=== PATIENT | male | born 1940 | race Caucasian/White ===

== ENCOUNTER 2019-10-08 03:08 | Inpatient (IN) | payer MEDICARE, OTHER ==
[~2019-10-08] VITALS: Ht 167.6 cm; Wt 53.0 kg
[~2019-10-08 03:08] MED LIST: ETOMIDATE 40 MG/20 ML ONE; PROPOFOL 10 MG/ML, 100ML IV ONE; ROCURONIUM 10 MG/ML,10ML ONE
[2019-10-08] MEDS ORDERED: CEFTRIAXONE PMX 1GM/50ML 50 ML IVPB ONE (04:00)
[2019-10-08] MEDS ORDERED: AZITHROMYCIN 500 MG in SODIUM CHLORIDE 0.9% 250 ML IVPB ONE (04:00)
[2019-10-08] MEDS ORDERED: PROPOFOL 100 ML IV PRN ×3 (04:00→07:44)
[2019-10-08] MEDS ORDERED: SODIUM CHLORIDE 0.9% 1,000ML IVBOLUS ONE ×2 (04:00→10:00)
[2019-10-08] MEDS ORDERED: PLEASE ENTER ALLERGIES MC SCH (04:00)
--- NOTE | 2019-10-08 04:05 | NUR ---
Late entry. Pt presents to ed c/o sobxmultiple days. States hx of copd, but no o2 at home. Pt appears in severe distress and severe wob. Utilizing accessory muscles and tracheal pulling. Pt intubated w/ 8.0 et 25.0@the lip. Equal breath sounds in all quadrants and etco2 approximately 32. An og tube placed and both validated via xr and erp. Pt initiated on propofol and and urinary catheter placed. Pt in restraints for safety at this time. Pt poor historian and minimal medical history obtained. States "allergic to all steroids and all antibiotics, excluding penicillin."
--- NOTE | 2019-10-08 04:21 | NUR ---
Per md, to give iv steroids and abx, despite stated allergies.
[2019-10-08] MEDS ORDERED: methylPREDNISolone SOD SUCC 125 MG/2 ML ONE (04:24)
[2019-10-08] MEDS ORDERED: CEFTRIAXONE PMX 1GM/50ML 50 ML ONE (04:25)
[2019-10-08 04:29] LABS: MEAN CORPUSCULAR HEMOGLOBIN 30.1 pg (27.5-34.5); MEAN CORPUSCULAR HGB CONC 32.6 g/dL (33.2-36.2); MEAN CORPUSCULAR VOLUME 92.2 fL (81-97); MEAN PLATELET VOLUME 9.1 fL (7.4-10.4); PLATELET COUNT 516 x10^3/uL (130-400); RED BLOOD COUNT 4.81 x10^6/uL (4.38-5.82); RED CELL DISTRIBUTION WIDTH 14.8 % (9.4-14.8)
[2019-10-08] MEDS ORDERED: ACETAMINOPHEN 650 MG SUPP PR ONE (04:30)
[2019-10-08] MEDS ORDERED: methylPREDNISolone SOD SUCC 125 MG/2 ML IV ONE (04:30)
[2019-10-08 04:32] LABS: ALANINE AMINOTRANSFERASE 62 U/L (12-78); ALBUMIN 2.5 g/dL (3.4-5.0); ANION GAP 10 mmol/L (5-15); CALCIUM 9.1 mg/dL (8.5-10.1); CHLORIDE 103 mmol/L (98-107); CREATININE 0.69 mg/dL (0.7-1.3)
[2019-10-08] MEDS ORDERED: ACETAMINOPHEN 325 MG SUPP ONE (04:32)
[2019-10-08 04:36] LABS: ALKALINE PHOSPHATASE 99 U/L (45-117); BILIRUBIN,TOTAL 0.6 mg/dL (0.2-1.0); TOTAL PROTEIN 7.2 g/dL (6.4-8.2)
[2019-10-08 04:44] LABS: TROPONIN I 0.219 ng/mL (0.000-0.045)
--- NOTE | 2019-10-08 04:45 | NUR ---
Pt not tolerating propofol well and bp going down. Md aware and propofol stopped. Versed initiated for sedation and potential for levophed and central line.
[2019-10-08 04:58] LABS: MD YES
[2019-10-08] MEDS ORDERED: DEXTROSE 4 GM TAB.CHEW PO PRN (05:00)
[2019-10-08] MEDS ORDERED: BISACODYL 10 MG SUPP PR PRN (05:00)
[2019-10-08] MEDS ORDERED: DEXTROSE 50%, 50ML SYRINGE IVPush PRN (05:00)
[2019-10-08] MEDS ORDERED: PHARMACY MAY ADJ FOR RENAL FX MC SCH (05:00)
[2019-10-08] MEDS ORDERED: LIDOCAINE-MPF 1%, 2ML ENDO PRN (05:00)
[2019-10-08] MEDS ORDERED: SENNA 176 MG/5 ML ORAL SOL NG PRN (05:00)
[2019-10-08] MEDS ORDERED: LACTULOSE 20 GM/30 ML UDC NG PRN (05:00)
[2019-10-08] MEDS ORDERED: GLUCAGON 1 MG IM PRN (05:00)
[2019-10-08] MEDS ORDERED: SENNA/DOCUSATE TABLET NG PRN (05:00)
[2019-10-08 05:39] LABS: BANDS%(MANUAL) 4 % (0-7); LYMPHS% (MANUAL) 8 % (22-44); MONOS% (MANUAL) 3 % (2-9); NRBC % (MANUAL) 1 % (0-1); SEGS% (MANUAL) 85 % (42-75)
[2019-10-08 05:40] LABS: <PLATELET ESTIMATE> INCREASED; <PLT MORPHOLOGY> NORMAL PLT MORPH; <RBC MORPHOLOGY> NORMAL
--- NOTE | 2019-10-08 05:52 | NUR ---
at bedside to reassess pt.
[2019-10-08] MEDS ORDERED: MIDAZOLAM 1 MG/ML, 5ML IVPush ONE (06:00)
[2019-10-08] MEDS: MIDAZOLAM HCL 25 MG in SODIUM CHLORIDE 0.9% 245 ML IV PRN ×4 (06:04→19:30)
--- NOTE | 2019-10-08 06:23 | NUR ---
Levophed initiated through peripheral line. Central line being placed at this time.
[2019-10-08] MEDS: NOREPINEPHRINE 4 MG in SODIUM CHLORIDE 0.9% 246 ML IV PRN ×4 (06:27→14:13)
--- NOTE | 2019-10-08 06:52 | NUR ---
RECEIVED BEDSIDE REPORT FROM OLI MCDONALD. PT RESTING ON [facility]. [place]. CALLED RADIOLOGY IN REGARDS TO THE STAT XRAY TO CHECK CENTRAL LINE PLACEMENT.
[2019-10-08] MEDS: INSULIN LISPRO 100 UNITS/ML, PEN SQ-INSULIN SCH ×4 (07:00→21:15)
[2019-10-08] MEDS: ALBUTEROL/IPRATROPIUM 2.5MG/0.5MG, 3 ML NPPB SCH ×5 (07:00→22:25)
--- NOTE | 2019-10-08 07:05 | NUR ---
OK TO USE CENTRAL LINE PER EDMD JEN.
[2019-10-08] MEDS ORDERED: VASOPRESSIN 100 UNIT in SODIUM CHLORIDE 0.9% 495 ML IV PRN (07:30)
[2019-10-08] MEDS ORDERED: FAMOTIDINE 20 MG/2 ML IV SCH (08:00)
[2019-10-08] MEDS ORDERED: POTASSIUM CHLORIDE 20 MEQ PACKET PO SCH (08:00)
[2019-10-08] MEDS ORDERED: POTASSIUM CHLORIDE 40 MEQ in SODIUM CHLORIDE 0.9% 1,000 ML IV SCH (08:00)
--- NOTE | 2019-10-08 08:03 | NUR ---
rebaldomerot to pablo Marrero. all questions answered.
[2019-10-08 08:06] LABS: RAPID INFLUENZA A Negative (Negative); RAPID INFLUENZA B Negative (Negative)
--- NOTE | 2019-10-08 08:09 | NUR ---
late entry FROM 0739 RECEIVED VASO FROM PHARMACY. PER DR. CHANG, START AT 0.04 UINTS/MIN. MED BEING ADMINISTERED THROUGH CENTRAL LINE. NADN. PT TOLERATING WITH NO COMPLICATIONS.
--- NOTE | 2019-10-08 08:46 | NUR ---
pt transported to icu bed 4. PT LEFT WITH ALL PERSONAL BELONGINGS, INCLUDING GLASSES AND WALLET.
[2019-10-08] MEDS: SODIUM CHLORIDE FLUSH 10ML SYR IVF SCH ×2 (09:00→21:01)
[2019-10-08] MEDS ORDERED: ASPIRIN 81 MG TABLET CHEW PO ONE (09:30)
[2019-10-08] MEDS: ENOXAPARIN 40 MG/0.4 ML SQ SCH (09:45)
[2019-10-08] MEDS ORDERED: PIPERACILLIN/TAZO/PMX 3.375GM 50 ML IV SCH (10:00)
[2019-10-08] MEDS ORDERED: SODIUM CHLORIDE 0.9% 1,000 ML IV SCH (10:30)
[2019-10-08 12:52] LABS: ANION GAP 9 mmol/L (5-15); CALCIUM 7.4 mg/dL (8.5-10.1); CHLORIDE 113 mmol/L (98-107); CREATININE 0.84 mg/dL (0.7-1.3)
[2019-10-08] MEDS: methylPREDNISolone SOD SUCC 125 MG/2 ML IVPush SCH ×2 (12:53→21:00)
[2019-10-08 12:57] LABS: CHOL/HDL RATIO 4.2; LDL/HDL RATIO 2.5 (0.5-3.0)
[2019-10-08] MEDS: NOREPINEPHRINE 8 MG in SODIUM CHLORIDE 0.9% 242 ML IV PRN ×2 (16:55→21:33)
[2019-10-08] MEDS: SODIUM CHLORIDE 0.9% 1,000 ML IV SCH ×2 (17:15→23:23)
[2019-10-08] MEDS: FENTANYL PF 100 MCG/2ML IVPush PRN (17:20)
[2019-10-08] MEDS: PIPERACILLIN/TAZO/PMX 3.375GM 50 ML IV SCH ×2 (17:49→23:23)
[2019-10-08 18:32] LABS: TROPONIN I 0.882 ng/mL (0.000-0.045)
[2019-10-08] MEDS: ATORVASTATIN 40 MG TABLET PO SCH (20:59)
[2019-10-09] MEDS: ALBUTEROL/IPRATROPIUM 2.5MG/0.5MG, 3 ML NPPB SCH ×6 (02:16→23:00)
[2019-10-09] MEDS: MIDAZOLAM HCL 25 MG in SODIUM CHLORIDE 0.9% 245 ML IV PRN ×4 (02:55→22:59)
[2019-10-09] MEDS: NOREPINEPHRINE 8 MG in SODIUM CHLORIDE 0.9% 242 ML IV PRN (02:55)
[2019-10-09 05:19] LABS: ANION GAP 9 mmol/L (5-15); CALCIUM 7.4 mg/dL (8.5-10.1); CHLORIDE 119 mmol/L (98-107); CREATININE 0.84 mg/dL (0.7-1.3)
[2019-10-09 05:21] LABS: MEAN CORPUSCULAR HEMOGLOBIN 30.2 pg (27.5-34.5); MEAN CORPUSCULAR HGB CONC 31.8 g/dL (33.2-36.2); MEAN PLATELET VOLUME 8.9 fL (7.4-10.4); PLATELET COUNT 527 x10^3/uL (130-400); RED BLOOD COUNT 3.78 x10^6/uL (4.38-5.82); RED CELL DISTRIBUTION WIDTH 15.1 % (9.4-14.8)
[2019-10-09] MEDS: PIPERACILLIN/TAZO/PMX 3.375GM 50 ML IV SCH ×4 (05:32→22:59)
[2019-10-09] MEDS: methylPREDNISolone SOD SUCC 125 MG/2 ML IVPush SCH ×3 (05:32→21:18)
[2019-10-09] MEDS: INSULIN LISPRO 100 UNITS/ML, PEN SQ-INSULIN SCH ×4 (05:34→21:00)
[2019-10-09 06:00] LABS: MD YES
[2019-10-09 06:02] LABS: BAND#(MANUAL) 2.95 x10^3/uL; BANDS%(MANUAL) 8 % (0-7); LYMPH#(MANUAL) 3.32 x10^3/uL (1-3.4); LYMPHS% (MANUAL) 9 % (22-44); METAMYELOCYTES# (MANUAL) 1.11 x10^3/uL (0-0); METAMYELOCYTES% (MANUAL) 3 % (0-1); MONOS#(MANUAL) 0.74 x10^3/uL (0.3-2.7); MONOS% (MANUAL) 2 % (2-9); NRBC % (MANUAL) 1 % (0-1); SEG#(MANUAL) 28.78 x10^3/uL (1.8-6.8); SEGS% (MANUAL) 78 % (42-75)
[2019-10-09 06:03] LABS: <PLATELET ESTIMATE> INCREASED; ANISOCYTOSIS 1+; POLYCHROMASIA 1+
[2019-10-09 06:04] LABS: LARGE PLATELETS 1+
[2019-10-09 06:05] LABS: TOXIC GRAN 1+
[2019-10-09 06:06] LABS: ECHINOCYTES 1+
[2019-10-09] MEDS: SODIUM CHLORIDE 0.9% 1,000 ML IV SCH ×2 (07:46→16:52)
[2019-10-09] MEDS: NOREPINEPHRINE 16 MG in SODIUM CHLORIDE 0.9% 234 ML IV PRN (07:47)
[2019-10-09] MEDS: THIAMINE 200 MG in SODIUM CHLORIDE 0.9% 50 ML IV SCH (09:34)
[2019-10-09] MEDS: ENOXAPARIN 40 MG/0.4 ML SQ SCH (10:08)
[2019-10-09] MEDS: FAMOTIDINE 20 MG/2 ML IV SCH (10:08)
[2019-10-09] MEDS ORDERED: SODIUM CHLORIDE 0.9% 1,000 ML IV SCH (10:30)
--- NOTE | 2019-10-09 10:50 | NUR ---
TF goal when ordered: w/ propofol: PROMOTE @ 50 ml/hr off propofol: 60ml/hr Will need slow start and advance w/ risk for refeeding
[2019-10-09 10:56] LABS: MICROSCOPIC INDICATED
[2019-10-09 11:00] LABS: CULTURE INDICATED? NO
[2019-10-09] MEDS: SODIUM CHLORIDE FLUSH 10ML SYR IVF SCH ×2 (13:02→21:17)
[2019-10-09] MEDS: ATORVASTATIN 40 MG TABLET PO SCH (21:18)
[2019-10-10] MEDS: ALBUTEROL/IPRATROPIUM 2.5MG/0.5MG, 3 ML NPPB SCH ×6 (03:00→23:32)
[2019-10-10] MEDS: PIPERACILLIN/TAZO/PMX 3.375GM 50 ML IV SCH ×4 (04:53→23:45)
[2019-10-10] MEDS: INSULIN LISPRO 100 UNITS/ML, PEN SQ-INSULIN SCH ×4 (04:53→21:00)
[2019-10-10] MEDS: methylPREDNISolone SOD SUCC 125 MG/2 ML IVPush SCH ×3 (04:55→21:52)
[2019-10-10 05:07] LABS: ANION GAP 8 mmol/L (5-15); CALCIUM 7.5 mg/dL (8.5-10.1); CHLORIDE 120 mmol/L (98-107)
[2019-10-10 05:09] LABS: MEAN CORPUSCULAR HEMOGLOBIN 30.4 pg (27.5-34.5); MEAN CORPUSCULAR HGB CONC 32.2 g/dL (33.2-36.2); MEAN CORPUSCULAR VOLUME 94.3 fL (81-97); MEAN PLATELET VOLUME 8.5 fL (7.4-10.4); PLATELET COUNT 460 x10^3/uL (130-400); RED BLOOD COUNT 3.52 x10^6/uL (4.38-5.82); RED CELL DISTRIBUTION WIDTH 15.3 % (9.4-14.8)
[2019-10-10] MEDS: MIDAZOLAM HCL 25 MG in SODIUM CHLORIDE 0.9% 245 ML IV PRN ×3 (06:03→21:57)
[2019-10-10 06:32] LABS: MD YES
[2019-10-10 06:33] LABS: ANISOCYTOSIS 1+; BAND#(MANUAL) 2.86 x10^3/uL; BANDS%(MANUAL) 8 % (0-7); ECHINOCYTES 1+; LYMPH#(MANUAL) 0.72 x10^3/uL (1-3.4); LYMPHS% (MANUAL) 2 % (22-44); MONOS#(MANUAL) 0.36 x10^3/uL (0.3-2.7); MONOS% (MANUAL) 1 % (2-9); NRBC % (MANUAL) 1 % (0-1); SEG#(MANUAL) 31.86 x10^3/uL (1.8-6.8); SEGS% (MANUAL) 89 % (42-75)
[2019-10-10 06:34] LABS: <PLATELET ESTIMATE> INCREASED; <PLT MORPHOLOGY> NORMAL PLT MORPH; OVALOCYTES 1+; POLYCHROMASIA 1+; TOXIC GRAN 1+
[2019-10-10] MEDS ORDERED: SODIUM PHOSPHATE 30 MMOL in SODIUM CHLORIDE 0.9% 500 ML IV ONE (07:00)
[2019-10-10] MEDS ORDERED: POTASSIUM CHLORIDE 10% 20 MEQ/15 ML UDC PO ONE (07:00)
[2019-10-10] MEDS: SODIUM CHLORIDE 0.9% 1,000 ML IV SCH (07:18)
[2019-10-10] MEDS ORDERED: POTASSIUM CHLORIDE 20 MEQ PACKET ONE (07:51)
[2019-10-10] MEDS: DOBUTAMINE/D5W PMX 250 ML IV PRN (09:29)
[2019-10-10] MEDS: ENOXAPARIN 40 MG/0.4 ML SQ SCH (09:29)
[2019-10-10] MEDS: FAMOTIDINE 20 MG/2 ML IV SCH (09:29)
[2019-10-10] MEDS: SODIUM CHLORIDE FLUSH 10ML SYR IVF SCH ×2 (09:35→21:52)
[2019-10-10] MEDS: NOREPINEPHRINE 16 MG in SODIUM CHLORIDE 0.9% 234 ML IV PRN (09:35)
[2019-10-10] MEDS: THIAMINE 200 MG in SODIUM CHLORIDE 0.9% 50 ML IV SCH (11:59)
[2019-10-10] MEDS: FENTANYL PF 100 MCG/2ML IVPush PRN (14:41)
[2019-10-10] MEDS ORDERED: SODIUM CHLORIDE 0.9% 1,000 ML IV SCH (18:00)
[2019-10-10] MEDS: ATORVASTATIN 40 MG TABLET PO SCH (21:52)
[2019-10-11] MEDS: DOBUTAMINE/D5W PMX 250 ML IV PRN ×2 (01:00→18:37)
[2019-10-11] MEDS: MIDAZOLAM HCL 25 MG in SODIUM CHLORIDE 0.9% 245 ML IV PRN ×4 (02:11→23:43)
[2019-10-11] MEDS: ALBUTEROL/IPRATROPIUM 2.5MG/0.5MG, 3 ML NPPB SCH ×6 (03:00→22:30)
[2019-10-11 04:54] LABS: MEAN CORPUSCULAR HEMOGLOBIN 29.9 pg (27.5-34.5); MEAN CORPUSCULAR HGB CONC 31.9 g/dL (33.2-36.2); MEAN CORPUSCULAR VOLUME 93.6 fL (81-97); MEAN PLATELET VOLUME 8.3 fL (7.4-10.4); PLATELET COUNT 407 x10^3/uL (130-400); RED BLOOD COUNT 3.36 x10^6/uL (4.38-5.82); RED CELL DISTRIBUTION WIDTH 15.4 % (9.4-14.8)
[2019-10-11 05:00] LABS: CHLORIDE 120 mmol/L (98-107)
[2019-10-11 05:05] LABS: ANION GAP 6 mmol/L (5-15); CALCIUM 7.5 mg/dL (8.5-10.1); CREATININE 0.57 mg/dL (0.7-1.3); TRIGLYCERIDES 148 mg/dL (50-200)
[2019-10-11] MEDS: PIPERACILLIN/TAZO/PMX 3.375GM 50 ML IV SCH (05:07)
[2019-10-11] MEDS: methylPREDNISolone SOD SUCC 125 MG/2 ML IVPush SCH ×3 (05:07→21:18)
[2019-10-11 05:16] LABS: BASOPHILS # (AUTO) 0.01 x10^3/uL (0-0.1); BASOPHILS % (AUTO) 0 % (0-1); EOSINOPHILS # (AUTO) 0.33 x10^3/uL (0-0.4); EOSINOPHILS % (AUTO) 1 % (1-7); LYMPHOCYTES # (AUTO) 0.55 x10^3/uL (1-3.4); LYMPHOCYTES % (AUTO) 2 % (22-44); MD SCAN; MONOCYTES # (AUTO) 0.52 x10^3/uL (0.2-0.8); MONOCYTES % (AUTO) 2 % (2-9); NEUTROPHILS # (AUTO) 22.23 x10^3/uL (1.8-6.8); NEUTROPHILS % (AUTO) 94 % (42-75)
[2019-10-11] MEDS ORDERED: POTASSIUM PHOSPHATE 44 MEQ in SODIUM CHLORIDE 0.9% 500 ML IV ONE (06:30)
[2019-10-11] MEDS ORDERED: POTASSIUM CHLORIDE 10% 20 MEQ/15 ML UDC PO ONE (06:30)
[2019-10-11] MEDS: INSULIN LISPRO 100 UNITS/ML, PEN SQ-INSULIN SCH ×3 (07:00→22:00)
[2019-10-11] MEDS: FAMOTIDINE 20 MG/2 ML IV SCH (08:00)
[2019-10-11] MEDS: FUROSEMIDE 20 MG/2 ML IV SCH ×2 (08:00→16:57)
[2019-10-11] MEDS: SODIUM CHLORIDE FLUSH 10ML SYR IVF SCH ×2 (08:01→20:03)
[2019-10-11] MEDS: POTASSIUM CHLORIDE 10% 20 MEQ/15 ML UDC PO SCH ×2 (08:01→21:18)
[2019-10-11] MEDS: ENOXAPARIN 40 MG/0.4 ML SQ SCH (08:01)
[2019-10-11] MEDS: CEFTRIAXONE PMX 2GM/50ML 50 ML IVPB SCH (10:13)
[2019-10-11] MEDS: THIAMINE 200 MG in SODIUM CHLORIDE 0.9% 50 ML IV SCH (11:21)
[2019-10-11] MEDS: FENTANYL PF 100 MCG/2ML IVPush PRN (20:03)
[2019-10-11] MEDS: ATORVASTATIN 40 MG TABLET PO SCH (21:18)
[2019-10-12] MEDS: ALBUTEROL/IPRATROPIUM 2.5MG/0.5MG, 3 ML NPPB SCH ×6 (03:00→22:35)
[2019-10-12 03:49] LABS: MEAN CORPUSCULAR HEMOGLOBIN 30.4 pg (27.5-34.5); MEAN CORPUSCULAR HGB CONC 32.3 g/dL (33.2-36.2); MEAN CORPUSCULAR VOLUME 93.9 fL (81-97); MEAN PLATELET VOLUME 8.1 fL (7.4-10.4); PLATELET COUNT 382 x10^3/uL (130-400); RED BLOOD COUNT 3.25 x10^6/uL (4.38-5.82); RED CELL DISTRIBUTION WIDTH 15.1 % (9.4-14.8)
[2019-10-12 03:54] LABS: MD YES
[2019-10-12] MEDS: INSULIN LISPRO 100 UNITS/ML, PEN SQ-INSULIN SCH ×4 (04:00→21:00)
[2019-10-12 04:02] LABS: ALANINE AMINOTRANSFERASE 56 U/L (12-78); ALBUMIN 1.7 g/dL (3.4-5.0); ANION GAP 7 mmol/L (5-15); BILIRUBIN, DIRECT 0.1 mg/dL (0.1-0.2); CALCIUM 7.6 mg/dL (8.5-10.1); CHLORIDE 118 mmol/L (98-107)
[2019-10-12 04:03] LABS: ANISOCYTOSIS 1+; BANDS%(MANUAL) 4 % (0-7); LYMPH#(MANUAL) 0.45 x10^3/uL (1-3.4); LYMPHS% (MANUAL) 2 % (22-44); MONOS#(MANUAL) 0.67 x10^3/uL (0.3-2.7); MONOS% (MANUAL) 3 % (2-9); NRBC % (MANUAL) 1 % (0-1); POLYCHROMASIA 1+; SEG#(MANUAL) 20.38 x10^3/uL (1.8-6.8); SEGS% (MANUAL) 91 % (42-75)
[2019-10-12 04:04] LABS: <PLATELET ESTIMATE> ADEQUATE; ECHINOCYTES 1+; LARGE PLATELETS 1+; OVALOCYTES 1+
[2019-10-12 04:05] LABS: ALKALINE PHOSPHATASE 54 U/L (45-117); BILIRUBIN,INDIRECT 0.1 mg/dL (0.0-2.0); BILIRUBIN,TOTAL 0.2 mg/dL (0.2-1.0); TOTAL PROTEIN 4.8 g/dL (6.4-8.2)
[2019-10-12] MEDS: MIDAZOLAM HCL 25 MG in SODIUM CHLORIDE 0.9% 245 ML IV PRN (04:41)
[2019-10-12] MEDS: methylPREDNISolone SOD SUCC 125 MG/2 ML IVPush SCH ×2 (05:48→17:03)
[2019-10-12] MEDS: POTASSIUM CHLORIDE 10% 20 MEQ/15 ML UDC PO SCH ×2 (08:26→21:18)
[2019-10-12] MEDS: FUROSEMIDE 20 MG/2 ML IV SCH ×2 (08:26→17:03)
[2019-10-12] MEDS: ENOXAPARIN 40 MG/0.4 ML SQ SCH (08:26)
[2019-10-12] MEDS: SODIUM CHLORIDE FLUSH 10ML SYR IVF SCH ×2 (08:26→21:18)
[2019-10-12] MEDS: FAMOTIDINE 20 MG/2 ML IV SCH (08:26)
[2019-10-12] MEDS: CEFTRIAXONE PMX 2GM/50ML 50 ML IVPB SCH (08:47)
[2019-10-12] MEDS: THIAMINE 200 MG in SODIUM CHLORIDE 0.9% 50 ML IV SCH (10:29)
[2019-10-12] MEDS: MIDAZOLAM HCL 50 MG in SODIUM CHLORIDE 0.9% 240 ML IV PRN ×2 (10:29→17:26)
[2019-10-12] MEDS: FENTANYL PF 100 MCG/2ML IVPush PRN (11:16)
[2019-10-12] MEDS: ALBUMIN HUMAN 25% 100 ML IV SCH (15:03)
[2019-10-12] MEDS ORDERED: DOBUTAMINE/D5W PMX 250 ML IV PRN (17:30)
[2019-10-12] MEDS: ATORVASTATIN 40 MG TABLET PO SCH (21:18)
[2019-10-13] MEDS: MIDAZOLAM HCL 50 MG in SODIUM CHLORIDE 0.9% 240 ML IV PRN (02:01)
[2019-10-13] MEDS: ALBUTEROL/IPRATROPIUM 2.5MG/0.5MG, 3 ML NPPB SCH ×6 (02:20→23:00)
[2019-10-13] MEDS: INSULIN LISPRO 100 UNITS/ML, PEN SQ-INSULIN SCH ×4 (03:00→20:37)
[2019-10-13 04:27] LABS: MEAN CORPUSCULAR HEMOGLOBIN 29.5 pg (27.5-34.5); MEAN CORPUSCULAR HGB CONC 31.8 g/dL (33.2-36.2); MEAN CORPUSCULAR VOLUME 92.7 fL (81-97); MEAN PLATELET VOLUME 7.9 fL (7.4-10.4); PLATELET COUNT 341 x10^3/uL (130-400); RED BLOOD COUNT 3.28 x10^6/uL (4.38-5.82); RED CELL DISTRIBUTION WIDTH 15.2 % (9.4-14.8)
[2019-10-13 04:39] LABS: ANION GAP 6 mmol/L (5-15); CALCIUM 8.2 mg/dL (8.5-10.1); CHLORIDE 113 mmol/L (98-107)
[2019-10-13 05:01] LABS: MD YES
[2019-10-13 05:03] LABS: ANISOCYTOSIS 1+; BANDS%(MANUAL) 1 % (0-7); LYMPH#(MANUAL) 1.41 x10^3/uL (1-3.4); LYMPHS% (MANUAL) 7 % (22-44); MONOS#(MANUAL) 0.61 x10^3/uL (0.3-2.7); MONOS% (MANUAL) 3 % (2-9); SEG#(MANUAL) 17.98 x10^3/uL (1.8-6.8); SEGS% (MANUAL) 89 % (42-75)
[2019-10-13 05:04] LABS: POLYCHROMASIA 1+
[2019-10-13 05:05] LABS: <PLATELET ESTIMATE> ADEQUATE; <PLT MORPHOLOGY> NORMAL PLT MORPH; ECHINOCYTES 1+; OVALOCYTES 1+
[2019-10-13] MEDS: ALBUMIN HUMAN 25% 100 ML IV SCH ×2 (06:02→14:59)
[2019-10-13] MEDS: methylPREDNISolone SOD SUCC 125 MG/2 ML IVPush SCH ×2 (06:02→16:35)
[2019-10-13] MEDS: FUROSEMIDE 20 MG/2 ML IV SCH ×2 (08:22→16:35)
[2019-10-13] MEDS: ENOXAPARIN 40 MG/0.4 ML SQ SCH (08:22)
[2019-10-13] MEDS: SODIUM CHLORIDE FLUSH 10ML SYR IVF SCH ×2 (08:22→21:00)
[2019-10-13] MEDS: FAMOTIDINE 20 MG/2 ML IV SCH ×2 (08:22→20:36)
[2019-10-13] MEDS: POTASSIUM CHLORIDE 10% 20 MEQ/15 ML UDC PO SCH ×2 (08:22→20:35)
[2019-10-13] MEDS: CEFTRIAXONE PMX 2GM/50ML 50 ML IVPB SCH (08:30)
[2019-10-13] MEDS ORDERED: DOBUTAMINE/D5W PMX 250 ML IV PRN (09:00)
[2019-10-13] MEDS: THIAMINE 200 MG in SODIUM CHLORIDE 0.9% 50 ML IV SCH (09:25)
[2019-10-13] MEDS: ATORVASTATIN 40 MG TABLET PO SCH (20:36)
[2019-10-14] MEDS: INSULIN LISPRO 100 UNITS/ML, PEN SQ-INSULIN SCH ×2 (03:00→09:00)
[2019-10-14] MEDS: ALBUTEROL/IPRATROPIUM 2.5MG/0.5MG, 3 ML NPPB SCH ×2 (03:00→07:00)
[2019-10-14 04:05] LABS: MEAN CORPUSCULAR HEMOGLOBIN 30.6 pg (27.5-34.5); MEAN CORPUSCULAR HGB CONC 32.6 g/dL (33.2-36.2); MEAN CORPUSCULAR VOLUME 93.7 fL (81-97); MEAN PLATELET VOLUME 8.6 fL (7.4-10.4); PLATELET COUNT 317 x10^3/uL (130-400); RED BLOOD COUNT 3.06 x10^6/uL (4.38-5.82); RED CELL DISTRIBUTION WIDTH 15.2 % (9.4-14.8)
[2019-10-14 04:15] LABS: ANION GAP 6 mmol/L (5-15); CALCIUM 8.6 mg/dL (8.5-10.1); CHLORIDE 109 mmol/L (98-107); CREATININE 0.54 mg/dL (0.7-1.3); TRIGLYCERIDES 97 mg/dL (50-200)
[2019-10-14 04:27] LABS: BASOPHILS # (AUTO) 0.01 x10^3/uL (0-0.1); BASOPHILS % (AUTO) 0 % (0-1); EOSINOPHILS # (AUTO) 0.42 x10^3/uL (0-0.4); EOSINOPHILS % (AUTO) 2 % (1-7); LYMPHOCYTES # (AUTO) 0.92 x10^3/uL (1-3.4); LYMPHOCYTES % (AUTO) 4 % (22-44); MD SCAN; MONOCYTES # (AUTO) 0.67 x10^3/uL (0.2-0.8); MONOCYTES % (AUTO) 3 % (2-9); NEUTROPHILS # (AUTO) 21.68 x10^3/uL (1.8-6.8); NEUTROPHILS % (AUTO) 92 % (42-75)
[2019-10-14] MEDS: methylPREDNISolone SOD SUCC 125 MG/2 ML IVPush SCH ×3 (06:00→18:14)
[2019-10-14] MEDS: ALBUMIN HUMAN 25% 100 ML IV SCH (06:00)
[2019-10-14] MEDS: FAMOTIDINE 20 MG/2 ML IV SCH (09:00)
[2019-10-14] MEDS: POTASSIUM CHLORIDE 10% 20 MEQ/15 ML UDC PO SCH (09:00)
[2019-10-14] MEDS: FUROSEMIDE 20 MG/2 ML IV SCH (09:29)
[2019-10-14] MEDS: CEFTRIAXONE PMX 2GM/50ML 50 ML IVPB SCH (09:29)
[2019-10-14] MEDS: SODIUM CHLORIDE FLUSH 10ML SYR IVF SCH ×2 (09:29→20:01)
[2019-10-14] MEDS: ENOXAPARIN 40 MG/0.4 ML SQ SCH (09:30)
[2019-10-14 15:49] VITALS: BP 109/70
[2019-10-14 18:48] VITALS: BP 101/55
[2019-10-14] MEDS: DIPHENHYDRAMINE 25 MG CAPSULE PO PRN (19:59)
[2019-10-14] MEDS: ATORVASTATIN 40 MG TABLET PO SCH (20:02)
[2019-10-15 01:17] VITALS: BP 94/62
[2019-10-15] MEDS: methylPREDNISolone SOD SUCC 125 MG/2 ML IVPush SCH (05:00)
[2019-10-15 05:24] LABS: MEAN CORPUSCULAR HEMOGLOBIN 30.1 pg (27.5-34.5); MEAN CORPUSCULAR HGB CONC 32.1 g/dL (33.2-36.2); MEAN PLATELET VOLUME 8.6 fL (7.4-10.4); PLATELET COUNT 354 x10^3/uL (130-400); RED BLOOD COUNT 3.48 x10^6/uL (4.38-5.82); RED CELL DISTRIBUTION WIDTH 15.4 % (9.4-14.8)
[2019-10-15 05:39] LABS: ANION GAP 5 mmol/L (5-15); CHLORIDE 107 mmol/L (98-107)
[2019-10-15 05:42] LABS: CREATININE 0.45 mg/dL (0.7-1.3)
[2019-10-15 05:57] LABS: BASOPHILS % (AUTO) 0 % (0-1); EOSINOPHILS % (AUTO) 3 % (1-7); LYMPHOCYTES # (AUTO) 1.94 x10^3/uL (1-3.4); LYMPHOCYTES % (AUTO) 8 % (22-44); MD SCAN; MONOCYTES # (AUTO) 0.17 x10^3/uL (0.2-0.8); MONOCYTES % (AUTO) 1 % (2-9); NEUTROPHILS # (AUTO) 20.65 x10^3/uL (1.8-6.8); NEUTROPHILS % (AUTO) 88 % (42-75)
[2019-10-15 07:35] VITALS: BP 99/64
[2019-10-15] MEDS: CEFTRIAXONE PMX 2GM/50ML 50 ML IVPB SCH ×2 (09:00→13:41)
[2019-10-15] MEDS: SODIUM CHLORIDE FLUSH 10ML SYR IVF SCH ×2 (09:00→21:00)
[2019-10-15] MEDS: ENOXAPARIN 40 MG/0.4 ML SQ SCH ×2 (09:30→13:40)
[2019-10-15 13:45] VITALS: BP 100/63
[2019-10-15 19:25] VITALS: BP 90/59
[2019-10-15] MEDS: ATORVASTATIN 40 MG TABLET PO SCH (21:00)
[2019-10-16 00:41] VITALS: BP 90/56
[2019-10-16 04:55] LABS: MEAN CORPUSCULAR HEMOGLOBIN 30.4 pg (27.5-34.5); MEAN CORPUSCULAR HGB CONC 32.5 g/dL (33.2-36.2); MEAN CORPUSCULAR VOLUME 93.5 fL (81-97); MEAN PLATELET VOLUME 9.1 fL (7.4-10.4); PLATELET COUNT 408 x10^3/uL (130-400); RED BLOOD COUNT 3.61 x10^6/uL (4.38-5.82); RED CELL DISTRIBUTION WIDTH 14.9 % (9.4-14.8)
[2019-10-16 05:08] LABS: ANION GAP 5 mmol/L (5-15); CALCIUM 7.7 mg/dL (8.5-10.1); CHLORIDE 108 mmol/L (98-107)
[2019-10-16 05:10] LABS: CREATININE 0.41 mg/dL (0.7-1.3)
[2019-10-16 05:49] LABS: BASOPHILS % (AUTO) 0 % (0-1); EOSINOPHILS # (AUTO) 0.82 x10^3/uL (0-0.4); EOSINOPHILS % (AUTO) 4 % (1-7); LYMPHOCYTES # (AUTO) 1.89 x10^3/uL (1-3.4); LYMPHOCYTES % (AUTO) 9 % (22-44); MD SCAN; MONOCYTES # (AUTO) 0.85 x10^3/uL (0.2-0.8); MONOCYTES % (AUTO) 4 % (2-9); NEUTROPHILS # (AUTO) 16.58 x10^3/uL (1.8-6.8); NEUTROPHILS % (AUTO) 82 % (42-75)
[2019-10-16 08:05] VITALS: BP 112/72
[2019-10-16] MEDS: CEFTRIAXONE PMX 2GM/50ML 50 ML IVPB SCH (08:37)
[2019-10-16] MEDS: SODIUM CHLORIDE FLUSH 10ML SYR IVF SCH ×2 (08:37→19:53)
[2019-10-16] MEDS: ENOXAPARIN 40 MG/0.4 ML SQ SCH (08:37)
[2019-10-16 14:00] VITALS: BP 99/60
[2019-10-16] MEDS: DIPHENHYDRAMINE 25 MG CAPSULE PO PRN (19:52)
[2019-10-16] MEDS: ATORVASTATIN 40 MG TABLET PO SCH (19:53)
[2019-10-16 19:55] VITALS: BP 117/75
[2019-10-17 00:08] VITALS: BP 106/69
[2019-10-17 05:47] LABS: MEAN CORPUSCULAR HEMOGLOBIN 29.7 pg (27.5-34.5); MEAN CORPUSCULAR HGB CONC 31.4 g/dL (33.2-36.2); MEAN CORPUSCULAR VOLUME 94.6 fL (81-97); MEAN PLATELET VOLUME 8.9 fL (7.4-10.4); PLATELET COUNT 460 x10^3/uL (130-400); RED BLOOD COUNT 3.96 x10^6/uL (4.38-5.82); RED CELL DISTRIBUTION WIDTH 15.4 % (9.4-14.8)
[2019-10-17 05:51] LABS: ANION GAP 4 mmol/L (5-15); CALCIUM 8.1 mg/dL (8.5-10.1); CHLORIDE 107 mmol/L (98-107); CREATININE 0.51 mg/dL (0.7-1.3)
[2019-10-17 06:33] LABS: BASOPHILS # (AUTO) 0.01 x10^3/uL (0-0.1); BASOPHILS % (AUTO) 0 % (0-1); EOSINOPHILS # (AUTO) 0.47 x10^3/uL (0-0.4); EOSINOPHILS % (AUTO) 2 % (1-7); LYMPHOCYTES % (AUTO) 9 % (22-44); MD SCAN; MONOCYTES # (AUTO) 1.32 x10^3/uL (0.2-0.8); MONOCYTES % (AUTO) 6 % (2-9); NEUTROPHILS # (AUTO) 16.88 x10^3/uL (1.8-6.8); NEUTROPHILS % (AUTO) 83 % (42-75)
[2019-10-17 09:26] VITALS: BP 115/80
[2019-10-17] MEDS: CEFTRIAXONE PMX 2GM/50ML 50 ML IVPB SCH (09:54)
[2019-10-17] MEDS: SODIUM CHLORIDE FLUSH 10ML SYR IVF SCH ×2 (09:55→19:21)
[2019-10-17] MEDS: ENOXAPARIN 40 MG/0.4 ML SQ SCH (09:55)
[2019-10-17 14:17] VITALS: BP 97/65
[2019-10-17 19:03] VITALS: BP 109/61
[2019-10-17] MEDS: DIPHENHYDRAMINE 25 MG CAPSULE PO PRN (19:19)
[2019-10-17] MEDS: ATORVASTATIN 40 MG TABLET PO SCH (19:21)
[2019-10-18 02:43] VITALS: BP 107/71
[2019-10-18 05:10] LABS: BASOPHILS % (AUTO) 0 % (0-1); EOSINOPHILS # (AUTO) 0.25 x10^3/uL (0-0.4); EOSINOPHILS % (AUTO) 2 % (1-7); LYMPHOCYTES # (AUTO) 1.88 x10^3/uL (1-3.4); LYMPHOCYTES % (AUTO) 13 % (22-44); MD NO; MEAN CORPUSCULAR HEMOGLOBIN 29.9 pg (27.5-34.5); MEAN CORPUSCULAR HGB CONC 31.9 g/dL (33.2-36.2); MEAN CORPUSCULAR VOLUME 93.9 fL (81-97); MEAN PLATELET VOLUME 8.8 fL (7.4-10.4); MONOCYTES # (AUTO) 1.28 x10^3/uL (0.2-0.8); MONOCYTES % (AUTO) 9 % (2-9); NEUTROPHILS # (AUTO) 11.43 x10^3/uL (1.8-6.8); NEUTROPHILS % (AUTO) 77 % (42-75); PLATELET COUNT 475 x10^3/uL (130-400); RED BLOOD COUNT 3.78 x10^6/uL (4.38-5.82); RED CELL DISTRIBUTION WIDTH 15.1 % (9.4-14.8)
[2019-10-18 05:16] LABS: ANION GAP 3 mmol/L (5-15); CALCIUM 7.9 mg/dL (8.5-10.1); CHLORIDE 108 mmol/L (98-107); CREATININE 0.47 mg/dL (0.7-1.3)
[2019-10-18 06:59] VITALS: BP 106/69
[2019-10-18] MEDS: ENOXAPARIN 40 MG/0.4 ML SQ SCH (10:22)
[2019-10-18] MEDS: CEFTRIAXONE PMX 2GM/50ML 50 ML IVPB SCH (10:22)
[2019-10-18] MEDS: SODIUM CHLORIDE FLUSH 10ML SYR IVF SCH ×2 (10:23→20:03)
[2019-10-18 14:31] VITALS: BP 106/69
[2019-10-18 18:57] VITALS: BP 95/63
[2019-10-18] MEDS: ATORVASTATIN 40 MG TABLET PO SCH (19:59)
[2019-10-18] MEDS: DIPHENHYDRAMINE 25 MG CAPSULE PO PRN (20:03)
[2019-10-18] MEDS: LORazepam 0.5MG TABLET PO PRN (22:49)
[2019-10-19 02:39] VITALS: BP 100/67
[2019-10-19 05:18] LABS: MEAN CORPUSCULAR HEMOGLOBIN 29.7 pg (27.5-34.5); MEAN CORPUSCULAR VOLUME 92.7 fL (81-97); MEAN PLATELET VOLUME 8.7 fL (7.4-10.4); PLATELET COUNT 476 x10^3/uL (130-400); RED BLOOD COUNT 3.67 x10^6/uL (4.38-5.82); RED CELL DISTRIBUTION WIDTH 15.2 % (9.4-14.8)
[2019-10-19 05:31] LABS: ANION GAP 4 mmol/L (5-15); CALCIUM 7.8 mg/dL (8.5-10.1); CHLORIDE 108 mmol/L (98-107)
[2019-10-19 05:33] LABS: CREATININE 0.49 mg/dL (0.7-1.3)
[2019-10-19 06:09] LABS: BASOPHILS # (AUTO) 0.04 x10^3/uL (0-0.1); BASOPHILS % (AUTO) 0 % (0-1); EOSINOPHILS # (AUTO) 0.25 x10^3/uL (0-0.4); EOSINOPHILS % (AUTO) 2 % (1-7); LYMPHOCYTES # (AUTO) 2.57 x10^3/uL (1-3.4); LYMPHOCYTES % (AUTO) 17 % (22-44); MD SCAN; MONOCYTES # (AUTO) 1.49 x10^3/uL (0.2-0.8); MONOCYTES % (AUTO) 10 % (2-9); NEUTROPHILS # (AUTO) 10.47 x10^3/uL (1.8-6.8); NEUTROPHILS % (AUTO) 71 % (42-75)
[2019-10-19 07:30] VITALS: BP 98/68
[2019-10-19] MEDS: ENOXAPARIN 40 MG/0.4 ML SQ SCH (08:22)
[2019-10-19] MEDS: CEFTRIAXONE PMX 2GM/50ML 50 ML IVPB SCH (08:22)
[2019-10-19] MEDS: SODIUM CHLORIDE FLUSH 10ML SYR IVF SCH ×2 (08:23→21:00)
[2019-10-19] MEDS: LORazepam 0.5MG TABLET PO PRN (13:12)
[2019-10-19 15:07] VITALS: BP 91/59
[2019-10-19 20:45] VITALS: BP 92/61
[2019-10-19] MEDS: ATORVASTATIN 40 MG TABLET PO SCH (21:52)
[2019-10-20 01:12] VITALS: BP 91/59
[2019-10-20] MEDS: LORazepam 0.5MG TABLET PO PRN ×4 (01:15→17:07)
[2019-10-20 04:58] LABS: MEAN CORPUSCULAR HEMOGLOBIN 29.7 pg (27.5-34.5); MEAN CORPUSCULAR HGB CONC 32.3 g/dL (33.2-36.2); MEAN CORPUSCULAR VOLUME 92.1 fL (81-97); MEAN PLATELET VOLUME 8.5 fL (7.4-10.4); PLATELET COUNT 503 x10^3/uL (130-400); RED BLOOD COUNT 3.59 x10^6/uL (4.38-5.82); RED CELL DISTRIBUTION WIDTH 15.7 % (9.4-14.8)
[2019-10-20 05:06] LABS: ANION GAP 4 mmol/L (5-15); CALCIUM 7.6 mg/dL (8.5-10.1); CHLORIDE 110 mmol/L (98-107); CREATININE 0.54 mg/dL (0.7-1.3)
[2019-10-20 05:51] LABS: BASOPHILS # (AUTO) 0.01 x10^3/uL (0-0.1); BASOPHILS % (AUTO) 0 % (0-1); EOSINOPHILS # (AUTO) 0.24 x10^3/uL (0-0.4); EOSINOPHILS % (AUTO) 2 % (1-7); LYMPHOCYTES # (AUTO) 2.82 x10^3/uL (1-3.4); LYMPHOCYTES % (AUTO) 20 % (22-44); MD SCAN; MONOCYTES # (AUTO) 1.48 x10^3/uL (0.2-0.8); MONOCYTES % (AUTO) 10 % (2-9); NEUTROPHILS # (AUTO) 9.67 x10^3/uL (1.8-6.8); NEUTROPHILS % (AUTO) 68 % (42-75)
[2019-10-20 06:40] VITALS: BP 99/67
[2019-10-20] MEDS: SODIUM CHLORIDE FLUSH 10ML SYR IVF SCH ×2 (08:04→19:38)
[2019-10-20] MEDS: CEFTRIAXONE PMX 2GM/50ML 50 ML IVPB SCH (08:05)
[2019-10-20] MEDS: ENOXAPARIN 40 MG/0.4 ML SQ SCH (08:05)
[2019-10-20 08:10] VITALS: BP 101/67
[2019-10-20 13:26] VITALS: BP 94/60
[2019-10-20] MEDS ORDERED: LIDOCAINE-MPF 1%, 5ML ONE (17:40)
[2019-10-20 19:25] VITALS: BP 99/69
[2019-10-20] MEDS: ATORVASTATIN 40 MG TABLET PO SCH (19:38)
[2019-10-20] MEDS: DIPHENHYDRAMINE 25 MG CAPSULE PO PRN (19:38)
[2019-10-21] MEDS: LORazepam 0.5MG TABLET PO PRN ×3 (01:07→14:25)
[2019-10-21 01:15] VITALS: BP 97/62
[2019-10-21] MEDS: DIPHENHYDRAMINE 25 MG CAPSULE PO PRN (03:12)
[2019-10-21 05:25] LABS: BASOPHILS # (AUTO) 0.08 x10^3/uL (0-0.1); BASOPHILS % (AUTO) 1 % (0-1); EOSINOPHILS # (AUTO) 0.15 x10^3/uL (0-0.4); EOSINOPHILS % (AUTO) 1 % (1-7); LYMPHOCYTES # (AUTO) 3.35 x10^3/uL (1-3.4); LYMPHOCYTES % (AUTO) 20 % (22-44); MD NO; MEAN CORPUSCULAR HEMOGLOBIN 29.5 pg (27.5-34.5); MEAN CORPUSCULAR HGB CONC 31.9 g/dL (33.2-36.2); MEAN CORPUSCULAR VOLUME 92.6 fL (81-97); MEAN PLATELET VOLUME 8.3 fL (7.4-10.4); MONOCYTES # (AUTO) 1.02 x10^3/uL (0.2-0.8); MONOCYTES % (AUTO) 6 % (2-9); NEUTROPHILS % (AUTO) 72 % (42-75); PLATELET COUNT 547 x10^3/uL (130-400); RED BLOOD COUNT 3.92 x10^6/uL (4.38-5.82); RED CELL DISTRIBUTION WIDTH 15.9 % (9.4-14.8)
[2019-10-21 05:37] LABS: ANION GAP 4 mmol/L (5-15); CALCIUM 8.5 mg/dL (8.5-10.1); CHLORIDE 113 mmol/L (98-107)
[2019-10-21 05:38] LABS: CREATININE 0.56 mg/dL (0.7-1.3)
[2019-10-21 07:45] VITALS: BP 114/77
[2019-10-21] MEDS: ENOXAPARIN 40 MG/0.4 ML SQ SCH (08:52)
[2019-10-21] MEDS: SODIUM CHLORIDE FLUSH 10ML SYR IVF SCH (08:52)
[2019-10-21] MEDS: CEFTRIAXONE PMX 2GM/50ML 50 ML IVPB SCH (08:52)
[2019-10-21] MEDS ORDERED: FUROSEMIDE 40 MG/4 ML IV SCH (11:00)
[2019-10-21] MEDS ORDERED: POTASSIUM CHLORIDE 20 MEQ TAB.ER.PRT PO ONE (11:00)
[2019-10-21] MEDS: methylPREDNISolone SOD SUCC 125 MG/2 ML IVPush SCH ×3 (11:34→23:52)
[2019-10-21 13:36] VITALS: BP 114/77
[2019-10-21] MEDS ORDERED: LIDOCAINE 1%, 10ML ONE (14:19)
[2019-10-21] MEDS ORDERED: OMNIPAQUE 350 MG/ML, 75ML BOTTLE ONE (15:28)
[2019-10-21 17:06] LABS: CELLS COUNTED 120
[2019-10-21] MEDS ORDERED: ATROPINE OPHTH SOLN 1%, 5ML PO PRN (17:30)
[2019-10-21] MEDS ORDERED: ONDANSETRON 2MG/ML, 2ML IVPush PRN (17:30)
[2019-10-21] MEDS ORDERED: SCOPOLAMINE PATCH, 1.5MG PATCH.TD72 TD PRN (17:30)
[2019-10-21] MEDS: MORPHINE SULFATE 4 MG/ML, 1ML IVPush PRN ×2 (17:45→23:57)
[2019-10-21] MEDS ORDERED: WINE PO PRN (20:30)
[2019-10-21] MEDS: LORazepam 2 MG/ML, 1ML IVPush PRN (23:28)
[2019-10-22] MEDS: MORPHINE SULFATE 4 MG/ML, 1ML IVPush PRN ×2 (03:32→07:36)
[2019-10-22] MEDS: MORPHINE 30MG/30ML PCA.SYR IV PRN (12:02)
[2019-10-22] MEDS: LORazepam 2 MG/ML, 1ML IVPush PRN ×2 (14:45→19:09)
[2019-10-23] MEDS: MORPHINE 30MG/30ML PCA.SYR IV PRN ×2 (01:59→17:37)
[2019-10-23] MEDS: LORazepam 2 MG/ML, 1ML IVPush PRN ×3 (07:00→23:32)
[2019-10-24] MEDS: LORazepam 2 MG/ML, 1ML IVPush PRN ×4 (03:28→23:52)
[2019-10-24] MEDS: MORPHINE 30MG/30ML PCA.SYR IV PRN ×3 (06:33→23:30)
[2019-10-25] MEDS: LORazepam 2 MG/ML, 1ML IVPush PRN (05:13)
[2019-10-25] MEDS: MORPHINE 30MG/30ML PCA.SYR IV PRN ×3 (07:35→23:31)
[2019-10-26] MEDS: MORPHINE 30MG/30ML PCA.SYR IV PRN (07:24)
== END 2019-10-26 16:30 | disposition expired | DRG 870 ==
LOC: ED 03:51 → EDIP 04:45 → ICU 08:34 → CCU 10-12 16:20 → 4NW 10-14 15:56
PROVIDERS: ADMIT Internal Medicine; ATTEND Internal Medicine
PROC: 5A1955Z Respiratory Ventilation, Greater than 96 Consecutive Hours (ICD-10-PCS; principal; 2019-10-08)
PROC: 0BH18EZ Insertion of Endotracheal Airway into Trachea, Via Natural or Artificial Opening Endoscopic (ICD-10-PCS; 2019-10-08)
PROC: 02HV33Z Insertion of Infusion Device into Superior Vena Cava, Percutaneous Approach (ICD-10-PCS; 2019-10-08)
PROC: B548ZZA Ultrasonography of Superior Vena Cava, Guidance (ICD-10-PCS; 2019-10-08)
PROC: 0T9B70Z Drainage of Bladder with Drainage Device, Via Natural or Artificial Opening (ICD-10-PCS; 2019-10-09)
PROC: 0W9B3ZZ Drainage of Left Pleural Cavity, Percutaneous Approach (ICD-10-PCS; 2019-10-09)
DX: A41.9 Sepsis, unspecified organism (principal); J13 Pneumonia due to Streptococcus pneumoniae; I50.43 Acute on chronic combined systolic (congestive) and diastolic (congestive) heart failure; R65.21 Severe sepsis with septic shock; J96.02 Acute respiratory failure with hypercapnia; E43 Unspecified severe protein-calorie malnutrition; I21.4 Non-ST elevation (NSTEMI) myocardial infarction; J96.01 Acute respiratory failure with hypoxia; N17.9 Acute kidney failure, unspecified; I42.9 Cardiomyopathy, unspecified; J44.0 Chronic obstructive pulmonary disease with (acute) lower respiratory infection; J44.1 Chronic obstructive pulmonary disease with (acute) exacerbation; Z99.11 Dependence on respirator [ventilator] status; Z68.1 Body mass index [BMI] 19.9 or less, adult; E87.6 Hypokalemia; F17.210 Nicotine dependence, cigarettes, uncomplicated; I27.20 Pulmonary hypertension, unspecified; T38.0X5A Adverse effect of glucocorticoids and synthetic analogues, initial encounter; Z66 Do not resuscitate; Z51.5 Encounter for palliative care; Y92.89 Other specified places as the place of occurrence of the external cause; Z87.01 Personal history of pneumonia (recurrent); I07.1 Rheumatic tricuspid insufficiency; D72.828 Other elevated white blood cell count
CPT/HCPCS: 31500; 32555; 36415; 36600; 71045; 71260; 80048; 80053; 80061; 80076; 81001; 82533; 82803; 82945; 82947; 82962; 83605; 83615; 83735; 83880; 84100; 84145; 84157; 84478; 84484; 85025; 87015; 87040; 87070; 87075; 87077; 87081; 87102; 87116; 87184; 87205; 87206; 87400; 88112; 88305; 88341; 88342; 89051; 93005; 93306; 94002; 94003; 94150; 94640; 99291; G0378; J0456; J0696; J1650; J1940; J2250; J2270; J2543; J2704; J3010; J3411; J7620; P9047; Q9967; J1250; J1815; J2060; J2930; J3490; J7030; J7040; J7050; J7512; Q0163